=== PATIENT | male | born 1995 | race Caucasian/White ===

== ENCOUNTER 2022-04-13 12:53 | Inpatient (IN) | payer OTHER ==
[~2022-04-13] VITALS: Ht 180.3 cm; Wt 85.7 kg
[2022-04-13] MEDS ORDERED: ACETAMINOPHEN 325 MG TABLET PO PRN (17:45)
[2022-04-13] MEDS ORDERED: OxyCODONE HCL/ACETAMINOPHEN 5-325 MG TABLET PO PRN (19:00)
[2022-04-13 19:14] VITALS: BP 117/70
[2022-04-13] MEDS: OxyCODONE HCL/ACETAMINOPHEN 10-325 MG TABLET PO PRN (19:14)
[2022-04-13 21:00] VITALS: BP 137/79
[2022-04-13] MEDS: APIXABAN 5 MG TABLET PO SCH (21:33)
[2022-04-13] MEDS: GABAPENTIN 300 MG CAPSULE PO SCH (21:33)
[2022-04-13] MEDS: ACETAMINOPHEN 500 MG TABLET PO SCH (21:33)
[2022-04-13] MEDS: TiZANidine HCL 4 MG TABLET PO SCH (21:35)
[2022-04-13] MEDS: MELATONIN 5 MG TABLET PO PRN (22:06)
[2022-04-14] MEDS: ACETAMINOPHEN 500 MG TABLET PO SCH (04:09)
[2022-04-14 08:05] VITALS: BP 125/73
[2022-04-14] MEDS: ETHYL ALCOHOL 62% ANTISEPTIC NASAL SANITIZER 0.6 ML AMPUL NASAL SCH ×2 (08:28→20:20)
[2022-04-14] MEDS: TiZANidine HCL 4 MG TABLET PO SCH ×3 (08:28→20:21)
[2022-04-14] MEDS: APIXABAN 5 MG TABLET PO SCH ×2 (08:28→20:20)
[2022-04-14] MEDS: GABAPENTIN 300 MG CAPSULE PO SCH ×3 (08:28→20:21)
[2022-04-14 09:10] LABS: EOSINOPHILS % (AUTO) 3.5 % (1.0-6.0); HEMATOCRIT 35.2 % (41-53); HEMOGLOBIN 11.7 g/dL (13.5-17.5); LYMPHOCYTES % (AUTO) 16.6 % (22.0-44.0); MEAN CORPUSCULAR HEMOGLOBIN 29.9 pg (26.0-34.0); MEAN CORPUSCULAR HGB CONC 33.2 G/dL (31.0-37.0); MEAN CORPUSCULAR VOLUME 90 fL (80-100); MONOCYTES # (AUTO) 0.5 K/uL (0.1-1.0); MONOCYTES % (AUTO) 7.8 % (2.0-9.0); NEUTROPHILS # (AUTO) 4.1 K/uL (1.8-7.7); NEUTROPHILS % (AUTO) 71.1 % (40.0-70.0); PLATELET COUNT (AUTO) 299 K/uL (150-450); RED CELL DISTRIBUTION WIDTH 15.1 % (11.5-14.5)
[2022-04-14 09:23] LABS: ALANINE AMINOTRANSFERASE 88 U/L (12-78); ALBUMIN 3.5 g/dL (3.4-5.0); ALKALINE PHOSPHATASE 289 U/L (46-116); ANION GAP 7 mmol/L (8-16); ASPARTATE AMINOTRANSFERASE 39 U/L (15-37); BILIRUBIN,TOTAL 0.9 mg/dL (0.1-1.0); CALCIUM, TOTAL 9.4 mg/dL (8.8-10.5); CARBON DIOXIDE 27 mmol/L (22-29); CHLORIDE 101 mmol/L (98-107); CREATININE 0.79 mg/dL (0.60-1.30); GLOMERULAR FILTR. RATE CALC > 60 mL/min (>60); GLUCOSE,RANDOM 122 mg/dL (70-110); POTASSIUM 3.9 mmol/L (3.5-5.1); SODIUM SERUM 135 mmol/L (136-145); TOTAL PROTEIN, SERUM 7.5 g/dL (6.4-8.2); UREA NITROGEN, BLOOD 16 mg/dL (7-18)
[2022-04-14] MEDS: OxyCODONE HCL/ACETAMINOPHEN 10-325 MG TABLET PO PRN ×3 (13:45→22:39)
[2022-04-14 17:46] VITALS: BP 125/73
[2022-04-14 18:35] VITALS: BP 131/77
[2022-04-14 20:00] VITALS: BP 133/72
[2022-04-14 20:30] VITALS: BP 133/72
[2022-04-14] MEDS: MELATONIN 5 MG TABLET PO PRN (22:40)
[2022-04-15 08:15] VITALS: BP 121/74
[2022-04-15] MEDS: OxyCODONE HCL/ACETAMINOPHEN 10-325 MG TABLET PO PRN (08:15)
[2022-04-15 08:28] VITALS: BP 121/74
[2022-04-15] MEDS: APIXABAN 5 MG TABLET PO SCH ×2 (08:47→21:17)
[2022-04-15] MEDS: ETHYL ALCOHOL 62% ANTISEPTIC NASAL SANITIZER 0.6 ML AMPUL NASAL SCH ×2 (08:47→21:18)
[2022-04-15] MEDS: GABAPENTIN 300 MG CAPSULE PO SCH ×3 (08:47→21:17)
[2022-04-15] MEDS: TiZANidine HCL 4 MG TABLET PO SCH ×3 (08:49→21:17)
[2022-04-15] MEDS ORDERED: OxyCODONE HCL 5 MG IR TABLET PO PRN (11:15)
[2022-04-15] MEDS: OxyCODONE HCL 10 MG IR TABLET PO PRN ×3 (12:51→22:45)
[2022-04-15 20:24] VITALS: BP 120/74
[2022-04-15] MEDS: MELATONIN 5 MG TABLET PO PRN (22:46)
[2022-04-16] MEDS: OxyCODONE HCL 10 MG IR TABLET PO PRN ×5 (04:32→21:13)
[2022-04-16 08:00] VITALS: BP 123/71
[2022-04-16] MEDS: APIXABAN 5 MG TABLET PO SCH ×2 (08:13→21:09)
[2022-04-16] MEDS: ETHYL ALCOHOL 62% ANTISEPTIC NASAL SANITIZER 0.6 ML AMPUL NASAL SCH ×2 (08:13→21:09)
[2022-04-16] MEDS: GABAPENTIN 300 MG CAPSULE PO SCH ×3 (08:14→21:09)
[2022-04-16] MEDS: TiZANidine HCL 4 MG TABLET PO SCH ×3 (08:14→21:09)
[2022-04-16 20:00] VITALS: BP 141/75
[2022-04-16] MEDS: MELATONIN 5 MG TABLET PO PRN (22:41)
[2022-04-17] MEDS: DOCUSATE SODIUM 250 MG CAPSULE PO SCH ×2 (08:14→19:59)
[2022-04-17] MEDS: ETHYL ALCOHOL 62% ANTISEPTIC NASAL SANITIZER 0.6 ML AMPUL NASAL SCH ×2 (08:14→20:00)
[2022-04-17] MEDS: GABAPENTIN 300 MG CAPSULE PO SCH ×3 (08:15→20:00)
[2022-04-17] MEDS: APIXABAN 5 MG TABLET PO SCH ×2 (08:15→20:00)
[2022-04-17] MEDS: TiZANidine HCL 4 MG TABLET PO SCH ×3 (08:16→20:00)
[2022-04-17] MEDS: OxyCODONE HCL 10 MG IR TABLET PO PRN ×4 (08:16→22:28)
[2022-04-17 08:35] VITALS: BP 131/71
[2022-04-17 20:10] VITALS: BP 111/70
[2022-04-17] MEDS ORDERED: SENNOSIDES 8.6 MG TABLET PO SCH (21:00)
[2022-04-17] MEDS: MELATONIN 5 MG TABLET PO PRN (22:30)
[2022-04-18] MEDS: OxyCODONE HCL 10 MG IR TABLET PO PRN ×2 (03:26→08:20)
[2022-04-18 07:30] LABS: ALANINE AMINOTRANSFERASE 56 U/L (12-78); ALBUMIN 3.5 g/dL (3.4-5.0); ALKALINE PHOSPHATASE 263 U/L (46-116); ANION GAP 6 mmol/L (8-16); ASPARTATE AMINOTRANSFERASE 21 U/L (15-37); BILIRUBIN,TOTAL 1.2 mg/dL (0.1-1.0); CALCIUM, TOTAL 9.4 mg/dL (8.8-10.5); CARBON DIOXIDE 31 mmol/L (22-29); CHLORIDE 99 mmol/L (98-107); GLUCOSE,RANDOM 93 mg/dL (70-110); POTASSIUM 3.8 mmol/L (3.5-5.1); SODIUM SERUM 136 mmol/L (136-145); TOTAL PROTEIN, SERUM 7.3 g/dL (6.4-8.2); UREA NITROGEN, BLOOD 15 mg/dL (7-18)
[2022-04-18 07:31] LABS: GLOMERULAR FILTR. RATE CALC > 60 mL/min (>60)
[2022-04-18 08:05] VITALS: BP 124/65
[2022-04-18] MEDS: ETHYL ALCOHOL 62% ANTISEPTIC NASAL SANITIZER 0.6 ML AMPUL NASAL SCH ×2 (08:18→21:03)
[2022-04-18] MEDS: GABAPENTIN 300 MG CAPSULE PO SCH ×3 (08:18→21:04)
[2022-04-18] MEDS: APIXABAN 5 MG TABLET PO SCH ×2 (08:18→21:04)
[2022-04-18] MEDS: DOCUSATE SODIUM 250 MG CAPSULE PO SCH ×2 (08:18→21:03)
[2022-04-18] MEDS: MULTIVITAMINS WITH MINERALS, THERAPEUTIC TABLET PO SCH (08:18)
[2022-04-18] MEDS: TiZANidine HCL 4 MG TABLET PO SCH ×3 (08:19→21:04)
[2022-04-18] MEDS ORDERED: OxyCODONE HCL/ACETAMINOPHEN 5-325 MG TABLET PO PRN (10:00)
[2022-04-18] MEDS: OxyCODONE HCL/ACETAMINOPHEN 10-325 MG TABLET PO PRN ×3 (13:37→22:49)
[2022-04-18 20:00] VITALS: BP 127/59
[2022-04-18] MEDS: SENNOSIDES 8.6 MG TABLET PO SCH (21:00)
[2022-04-18] MEDS: MELATONIN 5 MG TABLET PO PRN (22:49)
[2022-04-19] MEDS: OxyCODONE HCL/ACETAMINOPHEN 10-325 MG TABLET PO PRN ×5 (04:43→22:37)
[2022-04-19] MEDS: MULTIVITAMINS WITH MINERALS, THERAPEUTIC TABLET PO SCH (08:22)
[2022-04-19] MEDS: APIXABAN 5 MG TABLET PO SCH ×2 (08:22→21:09)
[2022-04-19] MEDS: GABAPENTIN 300 MG CAPSULE PO SCH ×3 (08:22→21:09)
[2022-04-19] MEDS: TiZANidine HCL 4 MG TABLET PO SCH ×3 (08:23→21:10)
[2022-04-19] MEDS: ETHYL ALCOHOL 62% ANTISEPTIC NASAL SANITIZER 0.6 ML AMPUL NASAL SCH ×2 (08:24→21:08)
[2022-04-19] MEDS: DOCUSATE SODIUM 250 MG CAPSULE PO SCH ×2 (08:27→21:08)
[2022-04-19 08:30] VITALS: BP 123/67
[2022-04-19 21:00] VITALS: BP 128/73
[2022-04-19] MEDS: DiphenhydrAMINE HCL 25 MG CAPSULE PO SCH (21:08)
[2022-04-19] MEDS: SENNOSIDES 8.6 MG TABLET PO SCH (21:16)
[2022-04-19] MEDS: MELATONIN 5 MG TABLET PO PRN (22:41)
[2022-04-20 08:00] VITALS: BP 127/70
[2022-04-20] MEDS: OxyCODONE HCL/ACETAMINOPHEN 10-325 MG TABLET PO PRN ×4 (08:23→22:32)
[2022-04-20] MEDS: MULTIVITAMINS WITH MINERALS, THERAPEUTIC TABLET PO SCH (08:24)
[2022-04-20] MEDS: ETHYL ALCOHOL 62% ANTISEPTIC NASAL SANITIZER 0.6 ML AMPUL NASAL SCH ×2 (08:25→21:01)
[2022-04-20] MEDS: DOCUSATE SODIUM 250 MG CAPSULE PO SCH ×2 (08:25→21:02)
[2022-04-20] MEDS: APIXABAN 5 MG TABLET PO SCH ×2 (08:25→21:02)
[2022-04-20] MEDS: GABAPENTIN 300 MG CAPSULE PO SCH ×3 (08:25→21:02)
[2022-04-20] MEDS: TiZANidine HCL 4 MG TABLET PO SCH ×3 (08:33→21:02)
[2022-04-20 21:00] VITALS: BP 137/75
[2022-04-20] MEDS: SENNOSIDES 8.6 MG TABLET PO SCH (21:02)
[2022-04-20] MEDS: DiphenhydrAMINE HCL 25 MG CAPSULE PO SCH (21:02)
[2022-04-20] MEDS: MELATONIN 5 MG TABLET PO PRN (22:32)
[2022-04-21] MEDS: OxyCODONE HCL/ACETAMINOPHEN 10-325 MG TABLET PO PRN ×5 (04:39→22:39)
[2022-04-21 08:05] VITALS: BP 129/64
[2022-04-21] MEDS: MULTIVITAMINS WITH MINERALS, THERAPEUTIC TABLET PO SCH (08:51)
[2022-04-21] MEDS: DOCUSATE SODIUM 250 MG CAPSULE PO SCH ×2 (08:51→20:10)
[2022-04-21] MEDS: ETHYL ALCOHOL 62% ANTISEPTIC NASAL SANITIZER 0.6 ML AMPUL NASAL SCH ×2 (08:51→20:11)
[2022-04-21] MEDS: APIXABAN 5 MG TABLET PO SCH ×2 (08:51→20:11)
[2022-04-21] MEDS: TiZANidine HCL 4 MG TABLET PO SCH ×3 (08:51→20:11)
[2022-04-21] MEDS: GABAPENTIN 300 MG CAPSULE PO SCH ×3 (08:51→20:10)
[2022-04-21 20:00] VITALS: BP 132/75
[2022-04-21] MEDS: SENNOSIDES 8.6 MG TABLET PO SCH (20:11)
[2022-04-21] MEDS: DiphenhydrAMINE HCL 25 MG CAPSULE PO SCH (22:39)
[2022-04-21] MEDS: MELATONIN 5 MG TABLET PO PRN (23:32)
[2022-04-22] MEDS: OxyCODONE HCL/ACETAMINOPHEN 10-325 MG TABLET PO PRN ×4 (04:54→20:09)
[2022-04-22 06:49] LABS: BASOPHILS % (AUTO) 0.7 % (0.0-2.0); EOSINOPHILS % (AUTO) 7.1 % (1.0-6.0); HEMATOCRIT 35.6 % (41-53); LYMPHOCYTES # (AUTO) 1.5 K/uL (1.0-4.8); LYMPHOCYTES % (AUTO) 23.1 % (22.0-44.0); MEAN CORPUSCULAR HEMOGLOBIN 30.5 pg (26.0-34.0); MEAN CORPUSCULAR HGB CONC 33.7 G/dL (31.0-37.0); MEAN CORPUSCULAR VOLUME 91 fL (80-100); MONOCYTES # (AUTO) 0.5 K/uL (0.1-1.0); MONOCYTES % (AUTO) 7.7 % (2.0-9.0); NEUTROPHILS # (AUTO) 4.1 K/uL (1.8-7.7); NEUTROPHILS % (AUTO) 61.4 % (40.0-70.0); PLATELET COUNT (AUTO) 192 K/uL (150-450); RED BLOOD CELL COUNT(AUTO) 3.94 MIL/uL (4.50-5.90); RED CELL DISTRIBUTION WIDTH 15.1 % (11.5-14.5)
[2022-04-22 08:41] VITALS: BP 123/74
[2022-04-22] MEDS: ETHYL ALCOHOL 62% ANTISEPTIC NASAL SANITIZER 0.6 ML AMPUL NASAL SCH ×2 (09:31→20:09)
[2022-04-22] MEDS: DOCUSATE SODIUM 250 MG CAPSULE PO SCH ×2 (09:32→20:10)
[2022-04-22] MEDS: APIXABAN 5 MG TABLET PO SCH ×2 (09:32→20:10)
[2022-04-22] MEDS: GABAPENTIN 300 MG CAPSULE PO SCH ×3 (09:32→20:09)
[2022-04-22] MEDS: MULTIVITAMINS WITH MINERALS, THERAPEUTIC TABLET PO SCH (09:33)
[2022-04-22] MEDS: TiZANidine HCL 4 MG TABLET PO SCH ×3 (09:36→20:10)
[2022-04-22] MEDS: SENNOSIDES 8.6 MG TABLET PO SCH (21:00)
[2022-04-22] MEDS: DiphenhydrAMINE HCL 25 MG CAPSULE PO SCH (22:13)
[2022-04-22] MEDS: MELATONIN 5 MG TABLET PO PRN (22:13)
[2022-04-22 22:31] VITALS: BP 126/75
[2022-04-23] MEDS: OxyCODONE HCL/ACETAMINOPHEN 10-325 MG TABLET PO PRN ×5 (03:51→21:24)
[2022-04-23 08:00] VITALS: BP 126/75
[2022-04-23] MEDS: ETHYL ALCOHOL 62% ANTISEPTIC NASAL SANITIZER 0.6 ML AMPUL NASAL SCH ×2 (08:00→21:26)
[2022-04-23] MEDS: DOCUSATE SODIUM 250 MG CAPSULE PO SCH ×2 (08:01→21:26)
[2022-04-23] MEDS: TiZANidine HCL 4 MG TABLET PO SCH ×3 (08:01→21:25)
[2022-04-23] MEDS: MULTIVITAMINS WITH MINERALS, THERAPEUTIC TABLET PO SCH (08:02)
[2022-04-23] MEDS: APIXABAN 5 MG TABLET PO SCH ×2 (08:02→21:26)
[2022-04-23] MEDS: GABAPENTIN 300 MG CAPSULE PO SCH ×3 (08:02→21:26)
[2022-04-23 21:00] VITALS: BP 121/61
[2022-04-23] MEDS: DiphenhydrAMINE HCL 25 MG CAPSULE PO SCH (21:00)
[2022-04-23] MEDS: SENNOSIDES 8.6 MG TABLET PO SCH (21:00)
[2022-04-23] MEDS: TraZODone HCL 100 MG TABLET PO SCH (21:58)
[2022-04-24] MEDS: TiZANidine HCL 4 MG TABLET PO SCH ×3 (08:30→21:38)
[2022-04-24 08:31] VITALS: BP 122/84
[2022-04-24] MEDS: GABAPENTIN 300 MG CAPSULE PO SCH ×3 (08:31→21:37)
[2022-04-24] MEDS: DOCUSATE SODIUM 250 MG CAPSULE PO SCH ×2 (08:31→21:39)
[2022-04-24] MEDS: APIXABAN 5 MG TABLET PO SCH ×2 (08:31→21:38)
[2022-04-24] MEDS: MULTIVITAMINS WITH MINERALS, THERAPEUTIC TABLET PO SCH (08:31)
[2022-04-24] MEDS: OxyCODONE HCL/ACETAMINOPHEN 10-325 MG TABLET PO PRN ×4 (08:31→21:37)
[2022-04-24] MEDS: ETHYL ALCOHOL 62% ANTISEPTIC NASAL SANITIZER 0.6 ML AMPUL NASAL SCH ×2 (08:33→21:39)
[2022-04-24 21:00] VITALS: BP 128/76
[2022-04-24] MEDS: DiphenhydrAMINE HCL 25 MG CAPSULE PO SCH (21:00)
[2022-04-24] MEDS: SENNOSIDES 8.6 MG TABLET PO SCH (21:39)
[2022-04-24] MEDS: TraZODone HCL 100 MG TABLET PO SCH (21:42)
[2022-04-25] MEDS: DOCUSATE SODIUM 250 MG CAPSULE PO SCH ×2 (08:08→21:05)
[2022-04-25] MEDS: ETHYL ALCOHOL 62% ANTISEPTIC NASAL SANITIZER 0.6 ML AMPUL NASAL SCH ×2 (08:08→21:05)
[2022-04-25] MEDS: MULTIVITAMINS WITH MINERALS, THERAPEUTIC TABLET PO SCH (08:09)
[2022-04-25] MEDS: APIXABAN 5 MG TABLET PO SCH ×2 (08:09→21:05)
[2022-04-25] MEDS: GABAPENTIN 300 MG CAPSULE PO SCH ×3 (08:09→21:05)
[2022-04-25] MEDS: TiZANidine HCL 4 MG TABLET PO SCH ×3 (08:09→21:05)
[2022-04-25 08:10] VITALS: BP 125/80
[2022-04-25] MEDS: OxyCODONE HCL/ACETAMINOPHEN 10-325 MG TABLET PO PRN ×3 (08:10→18:34)
[2022-04-25 21:00] VITALS: BP 136/74
[2022-04-25] MEDS: DiphenhydrAMINE HCL 25 MG CAPSULE PO SCH (21:06)
[2022-04-25] MEDS: SENNOSIDES 8.6 MG TABLET PO SCH (21:06)
[2022-04-25] MEDS: TraZODone HCL 100 MG TABLET PO SCH (21:06)
[2022-04-26] MEDS: MULTIVITAMINS WITH MINERALS, THERAPEUTIC TABLET PO SCH (08:44)
[2022-04-26] MEDS: GABAPENTIN 300 MG CAPSULE PO SCH ×3 (08:44→21:10)
[2022-04-26] MEDS: DOCUSATE SODIUM 250 MG CAPSULE PO SCH ×2 (08:44→21:00)
[2022-04-26] MEDS: OxyCODONE HCL/ACETAMINOPHEN 10-325 MG TABLET PO PRN ×4 (08:44→21:50)
[2022-04-26] MEDS: APIXABAN 5 MG TABLET PO SCH ×2 (08:45→21:11)
[2022-04-26] MEDS: ETHYL ALCOHOL 62% ANTISEPTIC NASAL SANITIZER 0.6 ML AMPUL NASAL SCH ×2 (08:45→21:10)
[2022-04-26] MEDS: TiZANidine HCL 4 MG TABLET PO SCH ×3 (08:45→21:50)
[2022-04-26 09:05] VITALS: BP 140/82
[2022-04-26 19:32] VITALS: BP 130/82
[2022-04-26] MEDS: DiphenhydrAMINE HCL 25 MG CAPSULE PO SCH (21:00)
[2022-04-26] MEDS: SENNOSIDES 8.6 MG TABLET PO SCH (21:00)
[2022-04-26] MEDS: TraZODone HCL 100 MG TABLET PO SCH (21:11)
[2022-04-27] MEDS: OxyCODONE HCL/ACETAMINOPHEN 10-325 MG TABLET PO PRN ×4 (07:23→19:43)
[2022-04-27 07:25] VITALS: BP 125/72
[2022-04-27] MEDS: TiZANidine HCL 4 MG TABLET PO SCH ×3 (08:28→19:43)
[2022-04-27] MEDS: DOCUSATE SODIUM 250 MG CAPSULE PO SCH ×2 (08:29→19:42)
[2022-04-27] MEDS: MULTIVITAMINS WITH MINERALS, THERAPEUTIC TABLET PO SCH (08:29)
[2022-04-27] MEDS: APIXABAN 5 MG TABLET PO SCH ×2 (08:29→19:42)
[2022-04-27] MEDS: GABAPENTIN 300 MG CAPSULE PO SCH ×3 (08:30→19:42)
[2022-04-27] MEDS: ETHYL ALCOHOL 62% ANTISEPTIC NASAL SANITIZER 0.6 ML AMPUL NASAL SCH ×2 (08:30→19:45)
[2022-04-27 19:43] VITALS: BP 130/77
[2022-04-27] MEDS: DiphenhydrAMINE HCL 25 MG CAPSULE PO SCH (19:59)
[2022-04-27] MEDS: SENNOSIDES 8.6 MG TABLET PO SCH (19:59)
[2022-04-27 20:00] VITALS: BP 130/77
[2022-04-27] MEDS: TraZODone HCL 100 MG TABLET PO SCH (21:34)
[2022-04-28 08:21] VITALS: BP 132/83
[2022-04-28] MEDS: OxyCODONE HCL/ACETAMINOPHEN 10-325 MG TABLET PO PRN ×4 (08:21→23:31)
[2022-04-28] MEDS: MULTIVITAMINS WITH MINERALS, THERAPEUTIC TABLET PO SCH (08:51)
[2022-04-28] MEDS: GABAPENTIN 300 MG CAPSULE PO SCH ×3 (08:52→20:58)
[2022-04-28] MEDS: TiZANidine HCL 4 MG TABLET PO SCH ×3 (08:52→20:59)
[2022-04-28] MEDS: ETHYL ALCOHOL 62% ANTISEPTIC NASAL SANITIZER 0.6 ML AMPUL NASAL SCH ×2 (08:52→20:58)
[2022-04-28] MEDS: APIXABAN 5 MG TABLET PO SCH ×2 (08:52→20:59)
[2022-04-28] MEDS: DOCUSATE SODIUM 250 MG CAPSULE PO SCH ×2 (08:52→20:58)
[2022-04-28 19:17] VITALS: BP 141/80
[2022-04-28] MEDS: TraZODone HCL 150 MG TABLET PO SCH (20:58)
[2022-04-28] MEDS: SENNOSIDES 8.6 MG TABLET PO SCH (20:59)
[2022-04-29 08:04] VITALS: BP 134/87
[2022-04-29] MEDS: OxyCODONE HCL/ACETAMINOPHEN 10-325 MG TABLET PO PRN ×4 (08:04→22:35)
[2022-04-29] MEDS: MULTIVITAMINS WITH MINERALS, THERAPEUTIC TABLET PO SCH (08:36)
[2022-04-29] MEDS: ETHYL ALCOHOL 62% ANTISEPTIC NASAL SANITIZER 0.6 ML AMPUL NASAL SCH ×2 (08:38→21:13)
[2022-04-29] MEDS: TiZANidine HCL 4 MG TABLET PO SCH ×3 (08:38→21:13)
[2022-04-29] MEDS: GABAPENTIN 300 MG CAPSULE PO SCH ×3 (08:38→21:12)
[2022-04-29] MEDS: APIXABAN 5 MG TABLET PO SCH ×2 (08:38→21:13)
[2022-04-29] MEDS: DOCUSATE SODIUM 250 MG CAPSULE PO SCH ×2 (08:38→21:12)
[2022-04-29 20:00] VITALS: BP 127/88
[2022-04-29] MEDS: SENNOSIDES 8.6 MG TABLET PO SCH (21:00)
[2022-04-29] MEDS: TraZODone HCL 150 MG TABLET PO SCH (21:12)
[2022-04-30] MEDS ORDERED: SENN-187 PO (02:43)
[2022-04-30] MEDS ORDERED: GABA-1181 PO (02:43)
[2022-04-30] MEDS ORDERED: DOCU-350 PO (02:43)
[2022-04-30] MEDS ORDERED: TIZA-211 PO (02:43)
[2022-04-30] MEDS ORDERED: PERCT PO (02:43)
[2022-04-30] MEDS ORDERED: APIX5TAB PO (02:43)
[2022-04-30] MEDS ORDERED: TRAZ150T80 PO (02:43)
[2022-04-30] MEDS ORDERED: MULT-1239 PO (02:43)
[2022-04-30] MEDS ORDERED: OXYC-490 PO (02:43)
[2022-04-30] MEDS: OxyCODONE HCL/ACETAMINOPHEN 10-325 MG TABLET PO PRN ×4 (07:47→21:19)
[2022-04-30] MEDS: ETHYL ALCOHOL 62% ANTISEPTIC NASAL SANITIZER 0.6 ML AMPUL NASAL SCH ×2 (07:48→21:12)
[2022-04-30] MEDS: DOCUSATE SODIUM 250 MG CAPSULE PO SCH ×2 (07:50→21:12)
[2022-04-30] MEDS: MULTIVITAMINS WITH MINERALS, THERAPEUTIC TABLET PO SCH (07:50)
[2022-04-30] MEDS: APIXABAN 5 MG TABLET PO SCH ×2 (07:51→21:13)
[2022-04-30] MEDS: GABAPENTIN 300 MG CAPSULE PO SCH ×3 (07:51→21:13)
[2022-04-30] MEDS: TiZANidine HCL 4 MG TABLET PO SCH ×3 (08:01→21:13)
[2022-04-30 08:47] VITALS: BP 114/57
[2022-04-30 19:45] LABS: COVID AG,FIA SOURCE NASAL SWAB
[2022-04-30 21:00] VITALS: BP 127/78
[2022-04-30] MEDS: SENNOSIDES 8.6 MG TABLET PO SCH (21:00)
[2022-04-30] MEDS: TraZODone HCL 150 MG TABLET PO SCH (21:14)
[2022-05-01] MEDS: DOCUSATE SODIUM 250 MG CAPSULE PO SCH ×2 (07:45→20:52)
[2022-05-01] MEDS: MULTIVITAMINS WITH MINERALS, THERAPEUTIC TABLET PO SCH (07:45)
[2022-05-01] MEDS: GABAPENTIN 300 MG CAPSULE PO SCH ×3 (07:45→20:52)
[2022-05-01 07:46] VITALS: BP 132/83
[2022-05-01] MEDS: TiZANidine HCL 4 MG TABLET PO SCH ×3 (07:46→20:52)
[2022-05-01] MEDS: ETHYL ALCOHOL 62% ANTISEPTIC NASAL SANITIZER 0.6 ML AMPUL NASAL SCH ×2 (07:46→20:53)
[2022-05-01] MEDS: OxyCODONE HCL/ACETAMINOPHEN 10-325 MG TABLET PO PRN ×3 (07:46→16:33)
[2022-05-01] MEDS: APIXABAN 5 MG TABLET PO SCH (09:00)
[2022-05-01 20:00] VITALS: BP 131/71
[2022-05-01] MEDS: TraZODone HCL 150 MG TABLET PO SCH (20:52)
[2022-05-01] MEDS: SENNOSIDES 8.6 MG TABLET PO SCH (20:54)
[2022-05-02] MEDS: OxyCODONE HCL/ACETAMINOPHEN 10-325 MG TABLET PO PRN ×5 (03:37→21:01)
[2022-05-02 07:54] VITALS: BP 129/81
[2022-05-02] MEDS: TiZANidine HCL 4 MG TABLET PO SCH ×3 (07:54→21:00)
[2022-05-02] MEDS: DOCUSATE SODIUM 250 MG CAPSULE PO SCH ×2 (07:54→21:00)
[2022-05-02] MEDS: MULTIVITAMINS WITH MINERALS, THERAPEUTIC TABLET PO SCH (07:54)
[2022-05-02] MEDS: ETHYL ALCOHOL 62% ANTISEPTIC NASAL SANITIZER 0.6 ML AMPUL NASAL SCH ×2 (07:54→21:04)
[2022-05-02] MEDS: GABAPENTIN 300 MG CAPSULE PO SCH ×3 (07:54→21:00)
[2022-05-02 12:20] VITALS: BP 134/85
[2022-05-02 20:00] VITALS: BP 128/79
[2022-05-02] MEDS: SENNOSIDES 8.6 MG TABLET PO SCH (21:00)
[2022-05-02] MEDS: TraZODone HCL 150 MG TABLET PO SCH (21:00)
[2022-05-03] MEDS ORDERED: ACET-2247 PO (00:40)
[2022-05-03] MEDS: OxyCODONE HCL/ACETAMINOPHEN 10-325 MG TABLET PO PRN ×5 (02:37→21:26)
[2022-05-03 07:30] VITALS: BP 129/62
[2022-05-03] MEDS: ETHYL ALCOHOL 62% ANTISEPTIC NASAL SANITIZER 0.6 ML AMPUL NASAL SCH ×2 (08:12→20:09)
[2022-05-03] MEDS: MULTIVITAMINS WITH MINERALS, THERAPEUTIC TABLET PO SCH (08:12)
[2022-05-03] MEDS: GABAPENTIN 300 MG CAPSULE PO SCH ×3 (08:12→20:09)
[2022-05-03] MEDS: DOCUSATE SODIUM 250 MG CAPSULE PO SCH ×2 (08:12→21:00)
[2022-05-03] MEDS: TiZANidine HCL 4 MG TABLET PO SCH ×3 (08:13→20:10)
[2022-05-03] MEDS: SENNOSIDES 8.6 MG TABLET PO SCH (21:00)
[2022-05-03 21:26] VITALS: BP 138/74
[2022-05-03] MEDS: TraZODone HCL 150 MG TABLET PO SCH (21:26)
[2022-05-04 05:17] VITALS: BP 148/85
[2022-05-04] MEDS: OxyCODONE HCL/ACETAMINOPHEN 10-325 MG TABLET PO PRN (05:17)
== END 2022-05-04 06:10 | disposition short-term general hospital (02) | DRG 562 ==
LOC: 2WR 17:15
PROVIDERS: ADMIT Physical Medicine & Rehabilitation; ATTEND Physical Medicine & Rehabilitation
DX: S52.292A Other fracture of shaft of left ulna, initial encounter for closed fracture (principal); R57.8 Other shock; S82.291A Other fracture of shaft of right tibia, initial encounter for closed fracture; S52.611A Displaced fracture of right ulna styloid process, initial encounter for closed fracture; S32.89XA Fracture of other parts of pelvis, initial encounter for closed fracture; M62.82 Rhabdomyolysis; E87.1 Hypo-osmolality and hyponatremia; N17.9 Acute kidney failure, unspecified; S52.92XA Unspecified fracture of left forearm, initial encounter for closed fracture; Z20.822 Contact with and (suspected) exposure to COVID-19; D64.9 Anemia, unspecified; R74.01 Elevation of levels of liver transaminase levels; G47.00 Insomnia, unspecified; S82.491A Other fracture of shaft of right fibula, initial encounter for closed fracture; S62.101A Fracture of unspecified carpal bone, right wrist, initial encounter for closed fracture; S62.318A Displaced fracture of base of other metacarpal bone, initial encounter for closed fracture; S62.212A Bennett's fracture, left hand, initial encounter for closed fracture; S92.132A Displaced fracture of posterior process of left talus, initial encounter for closed fracture; S92.022A Displaced fracture of anterior process of left calcaneus, initial encounter for closed fracture; S92.252A Displaced fracture of navicular [scaphoid] of left foot, initial encounter for closed fracture; S92.352A Displaced fracture of fifth metatarsal bone, left foot, initial encounter for closed fracture; S33.39XA Dislocation of other parts of lumbar spine and pelvis, initial encounter; V89.2XXA Person injured in unspecified motor-vehicle accident, traffic, initial encounter; Y93.89 Activity, other specified; Z79.899 Other long term (current) drug therapy; Z88.0 Allergy status to penicillin; Z82.49 Family history of ischemic heart disease and other diseases of the circulatory system; Z86.718 Personal history of other venous thrombosis and embolism; Y99.8 Other external cause status; Z86.711 Personal history of pulmonary embolism; Y92.89 Other specified places as the place of occurrence of the external cause
CPT/HCPCS: 80053; 85025; 87081; 97110; 97140; 97163; 97167; 97530; 97535; 99366; Q9967